=== PATIENT | male | born 1990 | race Hispanic/Latino ===

== ENCOUNTER 2023-06-22 05:44 | Emergency (ER) | payer SELFPAY ==
[2023-06-22] MEDS ORDERED: MORPHINE 4 MG/ML SYR ONE (06:46)
[2023-06-22] MEDS ORDERED: AZITHROMYCIN 250 MG TAB ONE (06:47)
[2023-06-22] MEDS ORDERED: DOXYCYCLINE 100 MG CAP PO ONE (06:47)
[2023-06-22] MEDS ORDERED: CEFTRIAXONE 1000 MG/VIAL ONE (06:47)
[2023-06-22] MEDS ORDERED: NA CHLORIDE 0.9% 100 ML ONE (06:47)
[2023-06-22] MEDS ORDERED: KETOROLAC 30 MG/ML INJ ONE (06:47)
[2023-06-22] MEDS ORDERED: NA CHLORIDE 0.9% 1,000 ML ONE (06:48)
[2023-06-22] MEDS ORDERED: ONDANSETRON 4 MG/2 ML VIAL ONE (06:50)
[2023-06-22 07:49] LABS: Absolute Lymphocytes (CBC) 0.8 K/uL (0.7-4.9); Hematocrit 39.6 % (39.6-49.0); Lymphocytes % 6.7 % (15.3-44.8); MCV 89.7 fL (80-100); MPV 7.8 fL (7.6-11.3); Platelets 219 thou/uL (152-406); RBC Red Blood Cell Count 4.42 M/uL (4.33-5.43)
--- NOTE | 2023-06-22 07:58 | RAD REPORT ---
EXAM DESCRIPTION: US - Scrotum Testicles - 06/22/2023 7:42 am CLINICAL HISTORY: Testicular pain COMPARISON: None FINDINGS: Right testicle measures 3.7 x 2.8 x 3.3 centimeters. Echotexture is homogeneous. Increased blood flow Left testicle measures 2.8 x 2.4 x 2.7 centimeters. Echotexture is homogeneous. Normal blood flow Increased blood flow right epididymis. 3 centimeter heterogeneous structure superior right scrotum with increased vascularity. It contains e chogenic areas. Scrotal skin thickening. Small right hydrocele Left varicocele IMPRESSION: Increased blood flow a right testicle and right epididymis consistent with orchitis/epid idymitis 3 centimeter heterogeneous structure superior right scrotum with increased vascularity. It is uncerta in if this represents a hernia, inflammatory mass or probably less likely hematoma. Followup ultrasou nd in a few weeks would be helpful for re-evaluation
[2023-06-22 08:06] LABS: Albumin 3.3 g/dL (3.4-5.0); Bilirubin Total 0.8 mg/dL (0.2-1.0); Potassium 3.8 mEq/L (3.5-5.1); Protein, Total 7.4 g/dL (6.4-8.2)
--- NOTE | 2023-06-22 08:11 | EDPHYS ---
Physician Documentation [facility] Name: Kota Carrera Age: 32 yrs Sex: Male : 1990 Arrival Date: 06/22/2023 Time: 05:44 Bed 14 Private MD: ED Physician Yuriy Adames HPI: 06/22 06:23 This 32 yrs old Male presents to ER via Ambulatory with complaints of antonieta Testicular Pain, Testicular Swelling. 06:23 The patient presents with swelling, tenderness, urinary symptoms, dribbling of urine, antonieta hesitancy to initiate urine stream, incontinence of urine, retention. Onset: The symptoms/episode began/occurred 14 day(s) ago. Modifying factors: The symptoms are alleviated by remaining still, the symptoms are aggravated by movement, pressure. Associated signs and symptoms: The patient has no apparent associated signs or symptoms. Severity of symptoms: At their worst the symptoms were moderate, severe, in the emergency department the symptoms are unchanged. The patient has not experienced similar symptoms in the past. Historical: - Allergies: 06:15 No Known Allergies; as6 - Home Meds: 06:15 None [Active]; as6 - PMHx: 06:15 None; as6 - PSHx: 06:15 None; as6 - Immunization history:: Adult Immunizations up to date. - Social history:: Smoking status: Patient denies any tobacco usage or history of. ROS: 06:25 Constitutional: Negative for fever, chills, and weight loss, Eyes: Negative for injury, antonieta pain, redness, and discharge, ENT: Negative for injury, pain, and discharge, Neck: Negative for injury, pain, and swelling, Cardiovascular: Negative for chest pain, palpitations, and edema, Respiratory: Negative for shortness of breath, cough, wheezing, and pleuritic chest pain, Abdomen/GI: Negative for abdominal pain, nausea, vomiting, diarrhea, and constipation, Back: Negative for injury and pain, MS/Extremity: Negative for injury and deformity, Skin: Negative for injury, rash, and discoloration, Neuro: Negative for headache, weakness, numbness, tingling, and seizure, Psych: Negative for depression, anxiety, suicide ideation, homicidal ideation, and hallucinations, Allergy/Immunology: Negative for hives, rash, and allergies, Endocrine: Negative for neck swelling, polydipsia, polyuria, polyphagia, and marked weight changes, Hematologic/Lymphatic: Negative for swollen nodes, abnormal bleeding, and unusual bruising, 06:25 : Positive for injury or acute deformity, testicular pain of the right testicle, Exam: 06:25 Constitutional: This is a well developed, well nourished patient who is awake, alert, antonieta and in no acute distress. Head/Face: Normocephalic, atraumatic. Eyes: Pupils equal round and reactive to light, extra-ocular motions intact. Lids and lashes normal. Conjunctiva and sclera are non-icteric and not injected. Cornea within normal limits. Periorbital areas with no swelling, redness, or edema. ENT: Nares patent. No nasal discharge, no septal abnormalities noted. Tympanic membranes are normal and external auditory canals are clear. Oropharynx with no redness, swelling, or masses, exudates, or evidence of obstruction, uvula midline. Mucous membranes moist. Neck: Trachea midline, no thyromegaly or masses palpated, and no cervical lymphadenopathy. Supple, full range of motion without nuchal rigidity, or vertebral point tenderness. No Meningismus. Chest/axilla: Normal chest wall appearance and motion. Nontender with no deformity. No lesions are appreciated. Cardiovascular: Regular rate and rhythm with a normal S1 and S2. No gallops, murmurs, or rubs. Normal PMI, no JVD. No pulse deficits. Respiratory: Lungs have equal breath sounds bilaterally, clear to auscultation and percussion. No rales, rhonchi or wheezes noted. No increased work of breathing, no retractions or nasal flaring. Abdomen/GI: Soft, non-tender, with normal bowel sounds. No distension or tympany. No guarding or rebound. No evidence of tenderness throughout. Back: No spinal tenderness. No costovertebral tenderness. Full range of motion. Skin: Warm, dry with normal turgor. Normal color with no rashes, no lesions, and no evidence of cellulitis. MS/ Extremity: Pulses equal, no cyanosis. Neurovascular intact. Full, normal range of motion. Neuro: Awake and alert, GCS 15, oriented to person, place, time, and situation. Cranial nerves II-XII grossly intact. Motor strength 5/5 in all extremities. Sensory grossly intact. Cerebellar exam normal. Normal gait. Psych: Awake, alert, with orientation to person, place and time. Behavior, mood, and affect are within normal limits. 06:25 : CVA tenderness, is absent, Male external genitalia: Patient is not circumisioned. swelling: of the right testicle is noted, testicle, tenderness, Bladder: is normal, Sexual behavior: the patient is sexually active, and reports a single partner, Vital Signs: 06:14 BP 118 / 69; Pulse 85; Resp 18 S; Temp 98.4(TE); Pulse Ox 98% on R/A; Weight 120.2 kg as6 (R); Height 5 ft. 5 in. (R); Pain 7/10; 06:14 Body Mass Index 44.10 (120.20 kg, 165.1 cm) as6 06:14 Pain Scale: Adult as6 MDM: 06:18 Patient medically screened. [facility] 06:27 Differential diagnosis: nonspecific abdominal pain, UTI. Data reviewed: vital signs, [facility] nurses notes, lab test result(s), radiologic studies, ultrasound. Consideration of Admission/Observation Escalation of care including admission/observation considered. I considered the following discharge prescriptions or medication management in the emergency department Medications were administered in the Emergency Department. See MAR. Independent interpretation of the following test(s) in the Emergency Department Radiology Department Ultrasound: My interpretation is right testicular\E\r pain , swelling. Test considered but Not performed: CT: no ct abd pelvis. Historians other than the Patient: pt well informed. Care significantly affected by the following chronic conditions: none. 08:10 ED course: Patient signed out to me by Dr. Wagoner at 7 AM from the cane pusher. I sp3 have seen and examined patient. Ultrasound demonstrates epididymitis consistent with clinical exam. Mild white blood cell count elevation with mild left shift. We will discharge patient home on Cipro.. 06/22 06:17 Order name: CBC with Diff [facility] 06/22 06:17 Order name: Comprehensive Metabolic Panel; Complete Time: 08:10 [facility] 06/22 06:17 Order name: US Scrotum Testicles; Complete Time: 08:10 [facility] 06/22 06:52 Order name: Misc. Order: RECOLLECT ALL LABS; Complete Time: 07:53 rv1 Administered Medications: 07:01 Drug: Doxycycline PO 100 mg PO once Route: PO; jw7 07:01 Drug: Ketorolac IVP 30 mg IVP once Route: IVP; Site: right forearm; jw7 07:01 Drug: Ondansetron IVP 4 mg IVP once; over 2 minutes Route: IVP; Site: right forearm; jw7 07:01 Drug: morphine IVP or IV 4 mg IVP once over 4 mins Route: IVP; Infused Over: 4 mins; jw7 Site: right forearm; 07:02 Drug: NS 0.9% IV 1000 ml IV at 1 bolus Per protocol; 1000 mL bolus Route: IV; Rate: 1 jw7 bolus; Site: right forearm; 07:02 Drug: Rocephin IV 1 grams IV at per protocol once; Given slow IV push per pharmacy jw7 instructions Route: IV; Rate: per protocol; Site: right forearm; 07:02 Drug: AZITHromycin PO 1 grams PO once Route: PO; jw7 Disposition Summary: 06/22/23 08:11 Discharge Ordered Notes: Location: Home sp3 Problem: new sp3 Symptoms: have improved sp3 Condition: Stable sp3 Diagnosis - Epididymitis sp3 - Epididymo-orchitis sp3 Followup: antonieta - With: Private Physician - When: 1 - 2 days - Reason: Recheck today's complaints, Continuance of care, Re-evaluation by your physician Followup: antonieta - With: Obdulio Lloyd MD - When: 1 - 2 days - Reason: Recheck today's complaints, Re-evaluation by your physician Discharge Instructions: - Discharge Summary Sheet antonieta - Epididymitis antonieta - Orchitis antonieta - Testicular Self-Exam antonieta - Testicular Self-Exam, [id number] antonieta Forms: - Work release form iw - Medication Reconciliation Form sp3 - Thank You Letter sp3 - Antibiotic Education sp3 - Prescription Opioid Use sp3 - Patient Portal Instructions sp3 - Leadership Thank You Letter sp3 Prescriptions: - acetaminophen-codeine 300-30 mg Oral tablet - take 2 tablet ORAL route every 6 hours; 20 tablet; Refills: 0, Product antonieta Selection Permitted - Doxycycline Hyclate 100 mg Oral Tablet - take 1 tablet ORAL route every 12 hours; 20 tablet; Refills: 0, Product antonieta Selection Permitted - Cipro 500 mg Oral Tablet - take 1 tablet ORAL route every 12 hours for 7 days; 14 tablet; Refills: 0, antonieta Product Selection Permitted - Diclofenac Sodium 75 mg Oral Tablet Sustained Release - take 1 tablet ORAL route 2 times per day; 30 tablet; Refills: 0, Product antonieta Selection Permitted Signatures: Dispatcher [employer] Yared Jacobs MD MD cha Patel, Setul, MD MD sp3 Larry Roe RN RN as6 Debi Borrero RN RN jw7 Erika Beard 1
--- NOTE | 2023-06-22 08:11 | ER ---
Nurse's Notes [facility] Name: Kota Carrera Age: 32 yrs Sex: Male : 1990 Arrival Date: 06/22/2023 Time: 05:44 Bed 14 Private MD: Diagnosis: Epididymitis;Epididymo-orchitis Presentation: 06/22 06:15 Coronavirus screen: At this time, the client does not indicate any symptoms associated as6 with coronavirus-19. Ebola Screen: No symptoms or risks identified at this time. Initial Sepsis Screen: Does the patient meet any 2 criteria? No. Patient's initial sepsis screen is negative. Does the patient have a suspected source of infection? No. Patient's initial sepsis screen is negative. Risk Assessment: Do you want to hurt yourself or someone else? Patient reports no desire to harm self or others. Onset of symptoms was June 21, 2023. 06:15 Acuity: OLIMPIA 3 as6 06:15 Method Of Arrival: Ambulatory as6 06:15 Chief complaint: Patient states: right testicular swelling x2 weeks with pain that as6 started yesterday. Triage Assessment: 06:25 General: Appears in no apparent distress. uncomfortable, Behavior is calm, cooperative. jw7 Pain: Complains of pain in right testicle Pain does not radiate. Pain currently is 7 out of 10 on a pain scale. Quality of pain is described as sharp, stabbing, Pain began 2 weeks ago Is intermittent, Alleviated by rest, Aggravated by increased activity, Noted to be grimacing, guarding. EENT: No deficits noted. No signs and/or symptoms were reported regarding the EENT system. Neuro: Perez Agitation-Sedation Scale (RASS): 0 - Alert and Calm Level of Consciousness is awake, alert, obeys commands, Oriented to person, place, time, situation. Cardiovascular: No deficits noted. Respiratory: No deficits noted. GI: No deficits noted. No signs and/or symptoms were reported involving the gastrointestinal system. : No deficits noted. No signs and/or symptoms were reported regarding the genitourinary system. Derm: No deficits noted. No signs and/or symptoms reported regarding the dermatologic system. Musculoskeletal: No deficits noted. No signs and/or symptoms reported regarding the musculoskeletal system. Historical: - Allergies: 06:15 No Known Allergies; as6 - Home Meds: 06:15 None [Active]; as6 - PMHx: 06:15 None; as6 - PSHx: 06:15 None; as6 - Immunization history:: Adult Immunizations up to date. - Social history:: Smoking status: Patient denies any tobacco usage or history of. Screenin:[facility] ED Fall Risk Assessment (Adult) History of falling in the last 3 months, jw7 including since admission No falls in past 3 months (0 pts) Score/Fall Risk Level 0 - 2 = Low Risk Oriented to surroundings, Maintained a safe environment. Abuse screen: Denies threats or abuse. Denies injuries from another. Nutritional screening: No deficits noted. Tuberculosis screening: No symptoms or risk factors identified. Assessment: 07:03 General: see triage assessment. jw7 08:35 Reassessment: Patient appears in no apparent distress at this time. Patient and/or iw family updated on plan of care and expected duration. Pain level reassessed. Patient is alert, oriented x 3, equal unlabored respirations, skin warm/dry/pink. Vital Signs: 06:14 BP 118 / 69; Pulse 85; Resp 18 S; Temp 98.4(TE); Pulse Ox 98% on R/A; Weight 120.2 kg as6 (R); Height 5 ft. 5 in. (R); Pain 7/10; 06:14 Body Mass Index 44.10 (120.20 kg, 165.1 cm) as6 06:14 Pain Scale: Adult as6 ED Course: 05:45 Patient arrived in ED. jj6 06:14 Arm band placed on. as6 06:15 Yared Wagoner MD is Attending Physician. antonieta 06:15 Triage completed. as6 06:25 Debi Borrero, LAURE is Primary Nurse. jw7 06:27 Patient has correct armband on for positive identification. Bed in low position. Call jw7 light in reach. 06:38 Missed attempt(s): 18 gauge in right antecubital area. Bleeding controlled, band aid jb4 applied, catheter tip intact. 07:01 Inserted saline lock: 22 gauge in right forearm, using aseptic technique. jw7 07:38 Attending Physician role handed off by Yared Wagoner MD sp3 07:38 Yuriy Adames MD is Attending Physician. sp3 07:44 US Scrotum Testicles In Process Unspecified. EDMS 08:11 Obdulio Lloyd MD is Referral Physician. sp3 08:35 Provided Education on: . iw 08:36 No provider procedures requiring assistance completed. IV discontinued, intact, iw bleeding controlled, No redness/swelling at site. 08:36 No provider procedures requiring assistance completed. IV discontinued, intact, ld1 bleeding controlled, No redness/swelling at site. Administered Medications: 07:01 Drug: Doxycycline PO 100 mg PO once Route: PO; jw7 07:01 Drug: Ketorolac IVP 30 mg IVP once Route: IVP; Site: right forearm; jw7 07:01 Drug: Ondansetron IVP 4 mg IVP once; over 2 minutes Route: IVP; Site: right forearm; jw7 07:01 Drug: morphine IVP or IV 4 mg IVP once over 4 mins Route: IVP; Infused Over: 4 mins; jw7 Site: right forearm; 07:02 Drug: NS 0.9% IV 1000 ml IV at 1 bolus Per protocol; 1000 mL bolus Route: IV; Rate: 1 jw7 bolus; Site: right forearm; 07:02 Drug: Rocephin IV 1 grams IV at per protocol once; Given slow IV push per pharmacy jw7 instructions Route: IV; Rate: per protocol; Site: right forearm; 07:02 Drug: AZITHromycin PO 1 grams PO once Route: PO; jw7 Medication: 08:37 VIS not applicable for this client. iw Outcome: 08:11 Discharge ordered by . sp3 08:36 Discharged to home ambulatory, with family, iw 08:36 Condition: good 08:36 Discharge instructions given to patient, family, Instructed on discharge instructions, follow up and referral plans. medication usage, Demonstrated understanding of instructions, follow-up care, medications, Prescriptions given X 2, 08:36 Discharged to home ambulatory, ld1 08:36 Condition: stable 08:36 Discharge instructions given to patient, Instructed on discharge instructions, follow up and referral plans. medication usage, Demonstrated understanding of instructions, follow-up care, 08:37 Patient left the ED. ld1 Signatures: Dispatcher [employer] EDFL Yared Wagoner MD MD cha Williams, Irene, RN RN iw Pablo Castellanos RN RN jb4 Deneen Marie RN RN ld1 uYriy Adames MD MD sp3 Kerri Soliz jj6 Larry Roe, RN RN as6 Debi Borrero RN RN jw7
[2023-06-22 08:46] VITALS: BP 118/69; TEMP 98.4; O2SAT 98
[2023-06-22 09:14] LABS: Blood Morphology Comment NOT SEEN (NOT SEEN); Platelet Estimate ADEQ; White Blood Cell Scan OK (OK)
== END 2023-06-22 08:37 | disposition home or self-care (01) ==
LOC: ER 05:44
DX: N45.3 Epididymo-orchitis (principal); N45.1 Epididymitis
CPT/HCPCS: 36415; 76870; 80053; 85025; 96374; 96375; 99284; J0696; J2405; J7030